=== PATIENT | male | born 1950 | race Caucasian/White ===

== ENCOUNTER 2023-10-26 15:30 | Outpatient (CLI) | payer MEDICARE, BC ==
[2023-10-26 15:49] LABS: TOTAL HEMOGLOBIN 15.8 G/dl (14.0-17.9)
== END 2023-10-26 23:59 | disposition home or self-care (01) ==
LOC: RT 15:30
PROVIDERS: ATTEND Internal Medicine
DX: R94.31 Abnormal electrocardiogram [ECG] [EKG] (principal); R06.02 Shortness of breath
CPT/HCPCS: 85018; 94010; 94727; 94729

== ENCOUNTER 2025-10-15 12:19 | Outpatient (CLI) | payer BC, MEDICARE, OTHER ==
[~2025-10-15 12:19] MED LIST: barium sulfate 340gm for oral suspension 1 BOTTLE SUSP.RECON PO ONE
--- NOTE | 2025-10-15 18:00 | RADIOLOGY REPORT ---
EXAM: ESOPHAGRAM HISTORY: Evaluate for hiatal hernia FLUORO TIME: 1.3 minutes. AIR KERMA: 74.5 mGy TECHNIQUE: The patient was positioned upright and prone at the fluoroscopy unit and instructed to swallow both thick and thin barium contrast material under fluoroscopic examination. FINDINGS: Normal swallow reflex. No aspiration. No evidence of esophageal stenosis. There were no tertiary contractions. No mucosal ulcerations seen throughout the esophagus. There is a small reducible axial hiatal hernia. Contrast proceeded appropriately through the gastric lumen without restriction. Mild gastroesophageal reflux was noted. The mucosal pattern at the cardia of the stomach is somewhat poorly defined. IMPRESSION: 1. Small reducible axial hiatal hernia. 2. Mild reflux seen. 3. Mucosal pattern at the cardia of the stomach is somewhat poorly defined.
== END 2025-10-15 23:59 | disposition home or self-care (01) ==
LOC: RAD 12:19
PROVIDERS: ATTEND Radiology Diagnostic Radiology
DX: R13.10 Dysphagia, unspecified (principal)
CPT/HCPCS: 74220